=== PATIENT | female | born 1965 | race Two or more races ===

== ENCOUNTER 2020-10-02 18:26 | Emergency (ER) | payer OTHER ==
[~2020-10-02] VITALS: Ht 170.2 cm; Wt 59.0 kg
[2020-10-02 18:29] VITALS: BP 127/77
== END 2020-10-02 19:30 | disposition left against medical advice (07) ==
LOC: ER 18:26
DX: M25.552 Pain in left hip (principal); Z53.21 Procedure and treatment not carried out due to patient leaving prior to being seen by health care provider